=== PATIENT | male | born 1985 | race American Indian/Alaskan Native ===

== ENCOUNTER 2021-09-02 11:25 | Emergency (ER) | payer SELFPAY ==
[2021-09-02 11:36] VITALS: BP 124/67
--- NOTE | 2021-09-02 11:59 | Emergency Department Report ---
- General Chief complaint: Extremity Injury, Upper Stated complaint: RIGHT 4TH FINGER SWELLING Time Seen by Provider: 09/02/21 11:54 Source: patient Mode of arrival: Ambulatory Limitations: No Limitations - History of Present Illness Initial comments: Patient is a 36-year-old male who presents emergency room with complaints of right fourth finger swelling that began 4 days ago. Patient states he initially had a callus present in that area. 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 He denies any fever, drainage, difficulty moving the finger, numbness, weakness, chills, vomiting. No past medical history. No allergies to medications. - Related Data Previous Rx's Medication Instructions Recorded Last Taken Type Sulfamethoxazole/Trimethoprim 1 each PO BID #14 tablet 09/02/21 Unknown Rx [Bactrim DS TAB] Allergies Allergy/AdvReac Type Severity Reaction Status Date / Time No Known Allergies Allergy Unverified 09/02/21 11:28 Abscess Boil HPI - HPI Chief Complaint: Extremity Injury, Upper Stated Complaint: RIGHT 4TH FINGER SWELLING Time Seen by Provider: 09/02/21 11:54 Home Medications: Previous Rx's Medication Instructions Recorded Last Taken Type Sulfamethoxazole/Trimethoprim 1 each PO BID #14 tablet 09/02/21 Unknown Rx [Bactrim DS TAB] Allergies/Adverse Reactions: Allergies Allergy/AdvReac Type Severity Reaction Status Date / Time No Known Allergies Allergy Unverified 09/02/21 11:28 ED Review of Systems ROS: Stated complaint: RIGHT 4TH FINGER SWELLING Other details as noted in HPI Comment: All other systems reviewed and negative ED Past Medical Hx - Past Medical History Previous Medical History?: No - Surgical History Past Surgical History?: No - Medications Home Medications: Home Medications Medication Instructions Recorded Confirmed Last Taken Type Sulfamethoxazole/Trimethoprim 1 each PO BID #14 tablet 09/02/21 Unknown Rx [Bactrim DS TAB] ED Physical Exam - General Limitations: No Limitations General appearance: alert, in no apparent distress - Head Head exam: Present: atraumatic, normocephalic - Eye Eye exam: Present: normal appearance - ENT ENT exam: Present: mucous membranes moist - Extremities Exam Extremities exam: Present: other (0.5 cm callus present to the right 4th digit overlying the middle phalanx, there is a 1 cm area of induration, no significant fluctuance, no drainage, no necrosis, FROM, neurovascularly intact) - Neurological Exam Neurological exam: Present: alert, oriented X3 - Psychiatric Psychiatric exam: Present: normal affect, normal mood - Skin Skin exam: Present: warm, dry ED Course Vital Signs 09/02/21 11:30 Temperature 98.5 F Pulse Rate 64 Respiratory 20 Rate Blood Pressure 124/67 [Right] O2 Sat by Pulse 99 Oximetry ED Medical Decision Making - Medical Decision Making Patient is a 36-year-old male who presents emergency room with complaints of right fourth finger swelling that began 4 days ago. Patient states he initially had a callus present in that area. 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 He denies any fever, drainage, difficulty moving the finger, numbness, weakness, chills, vomiting. No past medical history. No allergies to medications. Vitals are normal. On exam:0.5 cm callus present to the right 4th digit overlying the middle phalanx, there is a 1 cm area of induration, no significant fluctuance, no drainage, no necrosis, FROM, neurovascularly intact. Examination appears consistent with cellulitis with possible early abscess formation. Offered patient I&D and he politely declined and states he would like to attempt a trial of p.o. antibiotics first. No signs of septic joint, patient has full range of motion. No signs of infectious tenosynovitis, it is localized to the region of the middle phalanx. Advised patient Please take medication as prescribed. Area needs to be reexamined in the next 3 days. Please soak in Epson salt. Please keep area clean, dry, covered. Wash with antibacterial soap and water and pat dry. Follow-up with your primary care doctor. Return to emergency room immediately for any new or worsening symptoms including but not limited to worsening swelling, worsening redness, significant drainage, fever, chills, vomiting, etc. If your symptoms do not improve on antibiotics he will likely need to have a drainage performed in the emergency room Critical care attestation.: If time is entered above; I have spent that time in minutes in the direct care of this critically ill patient, excluding procedure time. ED Disposition Clinical Impression: Callus Cellulitis Qualifiers: Site of cellulitis: extremity Site of cellulitis of extremity: upper extremity Laterality: right Qualified Code(s): L03.113 - Cellulitis of right upper limb Disposition: HOME / SELF CARE / HOMELESS Is pt being admited?: No Does the pt Need Aspirin: No Condition: Stable Instructions: Cellulitis, Adult, [id number] Additional Instructions: Please take medication as prescribed. Area needs to be reexamined in the next 3 days. Please soak in Epson salt. Please keep area clean, dry, covered. Wash with antibacterial soap and water and pat dry. Follow-up with your primary care doctor. Return to emergency room immediately for any new or worsening symptoms including but not limited to worsening swelling, worsening redness, significant drainage, fever, chills, vomiting, etc. If your symptoms do not improve on antibiotics he will likely need to have a drainage performed in the emergency room. Prescriptions: Sulfamethoxazole/Trimethoprim [Bactrim DS TAB] 1 each PO BID #14 tablet Referrals: GENEVA LANCE MD [Staff Physician] - 2-3 Days [facility] [Provider Group] - 2-3 Days Time of Disposition: 11:58 Print Language: [place] ISLAND[place]
== END 2021-09-02 12:49 | disposition home or self-care (01) ==
LOC: ED 11:25
DX: L84 Corns and callosities (principal); L03.011 Cellulitis of right finger
CPT/HCPCS: 99282

== ENCOUNTER 2021-09-08 01:02 | Emergency (ER) | payer SELFPAY ==
--- NOTE | 2021-09-08 03:31 | Emergency Department Report ---
Upper Extremity - HPI Chief Complaint: Extremity Injury, Upper Stated Complaint: LEFT FINGER INFECTION Upper Extremity: Right Ring Finger (Infected punctue wound) Occurred When: >5 Days (7 days ago) Mechanism: Other (puncture of right ring finger at work) Severity: severe Symptoms: Yes Pain with Movement, Yes Swelling, Yes Laceration or Abrasion, No Deformity, No Limited Range of Movement, No Numbness, No Weakness, No Bruising/Ecchymosis Other History: Patient is a 36-year-old -[place] male with no past medical history presented to the ED with complaint of acute onset persistent painful swollen mild erythematous maculopapular rash on dorsal right ring finger around a small puncture wound that has been present for 1 week after a sharp object punctured his right middle finger at work about a week ago. Patient states that he has been taking oral antibiotics Bactrim DS twice a day for the last 6 days. Patient states that the swelling on the pain got worse in the last 2 days. Patient denies numbness and tingling or weakness of right hand or right ring finger, fever, chills, nausea and vomiting. ED Review of Systems ROS: Stated complaint: LEFT FINGER INFECTION Other details as noted in HPI Constitutional: denies: chills, fever Eyes: denies: eye pain, eye discharge, vision change ENT: denies: ear pain, throat pain Respiratory: denies: cough, shortness of breath, wheezing Cardiovascular: denies: chest pain, palpitations Endocrine: no symptoms reported Gastrointestinal: denies: abdominal pain, nausea, diarrhea Genitourinary: denies: urgency, dysuria Musculoskeletal: arthralgia (Right ring finger pain due to a swollen puncture wound with thick purulent discharge), myalgia. denies: back pain, joint swelling Skin: rash (Mild erythematous maculopapular rash around his swollen puncture wound on right ring finger with thick purulent discharge). denies: lesions Neurological: denies: headache, weakness, paresthesias Psychiatric: denies: anxiety, depression Hematological/Lymphatic: denies: easy bleeding, easy bruising ED Past Medical Hx - Past Medical History Previous Medical History?: No - Surgical History Past Surgical History?: No - Medications Home Medications: Home Medications Medication Instructions Recorded Confirmed Last Taken Type Sulfamethoxazole/Trimethoprim 1 each PO BID #14 tablet 09/02/21 Unknown Rx [Bactrim DS TAB] Ibuprofen [Motrin] 600 mg PO Q8H PRN #24 tablet 09/08/21 Unknown Rx cephALEXin [Keflex] 500 mg PO Q8HR #30 cap 09/08/21 Unknown Rx Upper Extremity Exam - Exam General: Vital signs noted. No distress. Alert and acting appropriately. Head and Torso: No HEENT Abnormality, No Neck Tenderness, No Chest/Lungs Abnormality, No Abdominal Tenderness, No Back Tenderness Shoulder Exam: Yes Normal Range of Motion in Shoulder, No Shoulder Tenderness, No Clavicle Tenderness, No Shoulder Deformity, No AC Joint Tenderness Arm Exam: No Arm/Humerus Tenderness, No Arm Deformity Elbow: Yes Normal Range of Motion in Elbow, No Elbow Tenderness, No Elbow Deformity Forearm: No Forearm Tenderness, No Forearm Deformity, No Pain with Pronation, No Pain with Supination Wrist: Yes Normal ROM in Wrist, No Wrist Tenderness, No Wrist Deformity, No Snuffbox Tenderness, No Pain with Axial Thumb Compression Hand: Yes Digit Tenderness (Right ring finger tenderness due to a small puncture wound with erythematous maculopapular rash and thick purulent discharge), Yes Normal ROM in Digit(s), No Hand Tenderness, No Hand Deformity, No Digit(s) Deformity, No Tendon Dysfunction CMS Exam: Yes Broken Skin (Open wound with thick purulent discharge: Dorsal right ring finger with mild erythema), Yes Normal Distal Pulses, Yes Normal Capillary Refill, Yes Normal Distal Sensation ED Course Vital Signs 09/08/21 01:05 Temperature 98.5 F Pulse Rate 95 H Respiratory 17 Rate Blood Pressure 120/66 O2 Sat by Pulse 100 Oximetry ED Medical Decision Making - Medical Decision Making This is a 36-year-old -[place] male with no past medical history presented to the ED with complaint of acute onset persistent painful swollen mild erythematous maculopapular rash on dorsal right ring finger around a small puncture wound that has been present for 1 week after a sharp object punctured his right middle finger at work about a week ago. Patient states that he has been taking oral antibiotics Bactrim DS twice a day for the last 6 days. Patient states that the swelling on the pain got worse in the last 2 days. In the ED, patient is alert and oriented x3 and is not in any distress. Patient right ring finger wound was cleaned with normal saline, and dressed appropriately. Patient was discharged home on pain medication and antibiotics and advised to follow-up with his primary care physician in 7 to 10 days for reevaluation or return to the ED immediately if symptoms get worse. - Differential Diagnosis Finger cellulitis; finger puncture wound; infected puncture wound; Critical care attestation.: If time is entered above; I have spent that time in minutes in the direct care of this critically ill patient, excluding procedure time. ED Disposition Clinical Impression: Cellulitis of right ring finger Puncture wound of right ring finger w/o FB w/o damage to nail Qualifiers: Encounter type: subsequent encounter Qualified Code(s): S61.234D - Puncture wound without foreign body of right ring finger without damage to nail, subsequent encounter Disposition: HOME / SELF CARE / HOMELESS Is pt being admited?: No Does the pt Need Aspirin: No Condition: Stable Instructions: Puncture Wound, [id number], Cellulitis, Adult, [id number] Additional Instructions: Take medication with food, drink plenty of fluids and follow-up with your primary care physician in 7 to 10 days for reevaluation. Return to the ED immediately if symptoms get worse. Prescriptions: cephALEXin [Keflex] 500 mg PO Q8HR #30 cap Ibuprofen [Motrin] 600 mg PO Q8H PRN #24 tablet PRN Reason: Pain Referrals: [facility] [Provider Group] - 7-10 days Time of Disposition: 03:32 Print Language: ARMENIAN
[2021-09-08 04:19] VITALS: BP 108/48
== END 2021-09-08 03:30 | disposition home or self-care (01) ==
LOC: ED 01:02
DX: S61.234A Puncture wound without foreign body of right ring finger without damage to nail, initial encounter (principal); L03.011 Cellulitis of right finger; W22.8XXA Striking against or struck by other objects, initial encounter; Y93.89 Activity, other specified; Y92.89 Other specified places as the place of occurrence of the external cause; Y99.0 Civilian activity done for income or pay
CPT/HCPCS: 99282